=== PATIENT | female | born 1955 | race Asian ===

== ENCOUNTER 2022-12-25 14:03 | Emergency (ER) | payer MEDICARE ==
[~2022-12-25] VITALS: Ht 152.4 cm; Wt 59.1 kg
[2022-12-25] MEDS ORDERED: AMLO5TAB66 PO (14:18)
[2022-12-25] MEDS ORDERED: METF-1211 PO (14:18)
[2022-12-25] MEDS ORDERED: ROSU20TA73 PO (14:18)
[2022-12-25] MEDS ORDERED: TELMISARTAN PO (14:18)
[2022-12-25] MEDS ORDERED: METF-81 PO (14:20)
[2022-12-25] MEDS ORDERED: TELM80TA10 PO (14:20)
[2022-12-25] MEDS ORDERED: RABIES VACCINE, HUMAN DIPLOID/PF 2.5 UNITS/ML VIAL IM. ONE (15:15)
[2022-12-25 15:46] VITALS: BP 112/73
== END 2022-12-25 15:56 | disposition home or self-care (01) ==
LOC: EMS 14:12
DX: S81.052D Open bite, left knee, subsequent encounter (principal); E11.9 Type 2 diabetes mellitus without complications; I10 Essential (primary) hypertension; Z23 Encounter for immunization; X58.XXXA Exposure to other specified factors, initial encounter
CPT/HCPCS: 90471; 90675; 99281

== ENCOUNTER 2023-01-01 09:29 | Emergency (ER) | payer MEDICARE ==
[~2023-01-01] VITALS: Ht 152.4 cm; Wt 55.9 kg
[~2023-01-01 09:29] MED LIST: AMLO5TAB66 PO; METF-81 PO; ROSU20TA73 PO; TELM80TA10 PO
[2023-01-01] MEDS ORDERED: RABIES VACCINE, HUMAN DIPLOID/PF 2.5 UNITS/ML VIAL IM. ONE (11:00)
[2023-01-01 11:30] VITALS: BP 120/77
== END 2023-01-01 11:47 | disposition home or self-care (01) ==
LOC: EMS 09:35
DX: S81.052A Open bite, left knee, initial encounter (principal); S71.151A Open bite, right thigh, initial encounter; E11.9 Type 2 diabetes mellitus without complications; I10 Essential (primary) hypertension; Z23 Encounter for immunization; W54.0XXD Bitten by dog, subsequent encounter; W54.0XXA Bitten by dog, initial encounter; Y93.89 Activity, other specified; Y92.89 Other specified places as the place of occurrence of the external cause; Y99.8 Other external cause status
CPT/HCPCS: 90471; 90675; 99281